=== PATIENT | female | born 1980 | race American Indian/Alaskan Native ===

== ENCOUNTER 2020-08-30 01:38 | Emergency (ER) | payer MEDICAID, OTHER ==
[2020-08-30 02:03] VITALS: BP 125/83
[2020-08-30] MEDS ORDERED: NEOMY 3.5 MG/BACIT 400 UNITS/POLY B 5000 UNITS/GM OINT PACKET TP ONE (02:27)
--- NOTE | 2020-08-30 02:45 | Emergency Department Report ---
ED Lower Extremity HPI - General Chief Complaint: Wound/Laceration Stated Complaint: KNEE PAIN Source: patient Mode of arrival: Ambulatory Limitations: No Limitations - History of Present Illness Initial Comments: Patient is a 39-year-old -[place] female with no past medical history presents to the ED with complaint of acute onset persistent right knee pain with abrasion after she tripped and fell down 3 days ago. Patient states that the abrasion and pain have worsened in the last 2 days. Patient said that she has been applying topical antibiotics and cleaning the wound with peroxide and that in the last 12 hours the pain in the abrasion wound worsened. Patient denies numbness and tingling or weakness of right leg, dizziness, syncope, chest pain, shortness of breath, seizures, fever, chills, cough or back pain. MD Complaint: knee injury (right knee abrasion) -: Sudden, days(s) (3) Injury: Knee: Right (abrasion and pain) Type of Injury: blunt, other (fall) Place: street/outdoors Severity: severe Severity scale (0 -10): 7 Improves With: nothing Worsens With: weight bearing, movement, palpation Context: fall, direct blow Associated Symptoms: able to partially bear weight - Related Data Previous Rx's Medication Instructions Recorded Last Taken Type Ibuprofen [Motrin] 600 mg PO Q8H PRN #24 tablet 08/30/20 Unknown Rx Neomycn/Bacitrc/Polymyx/Pramox 1 applic TP Q8H #1 oint...g. 08/30/20 Unknown Rx [Neosporin + Pain Relief Oint] Allergies Allergy/AdvReac Type Severity Reaction Status Date / Time No Known Allergies Allergy Unverified 05/31/13 14:17 ED Review of Systems ROS: Stated complaint: KNEE PAIN Other details as noted in HPI Constitutional: denies: chills, fever Eyes: denies: eye pain, eye discharge, vision change ENT: denies: ear pain, throat pain Respiratory: denies: cough, shortness of breath, wheezing Cardiovascular: denies: chest pain, palpitations Endocrine: no symptoms reported Gastrointestinal: denies: abdominal pain, nausea, diarrhea Genitourinary: denies: urgency, dysuria, discharge Musculoskeletal: arthralgia (Anterior right knee pain due to ulcerated abrasion wound). denies: back pain, joint swelling Skin: other (Ulcerated abrasion wound on anterior right knee). denies: rash, lesions Neurological: denies: headache, weakness, paresthesias Psychiatric: denies: anxiety, depression Hematological/Lymphatic: denies: easy bleeding, easy bruising ED Past Medical Hx - Past Medical History Previous Medical History?: No - Surgical History Past Surgical History?: Yes Additional Surgical History: Ambulatory Surgery - Social History Smoking Status: Current Every Day Smoker - Medications Home Medications: Home Medications Medication Instructions Recorded Confirmed Last Taken Type Ibuprofen [Motrin] 600 mg PO Q8H PRN #24 tablet 08/30/20 Unknown Rx Neomycn/Bacitrc/Polymyx/Pramox 1 applic TP Q8H #1 oint...g. 08/30/20 Unknown Rx [Neosporin + Pain Relief Oint] ED Physical Exam - General Limitations: No Limitations General appearance: alert, in no apparent distress - Head Head exam: Present: atraumatic, normocephalic, normal inspection - Eye Eye exam: Present: normal appearance, PERRL, EOMI - ENT ENT exam: Present: normal exam, normal orophraynx, mucous membranes moist, TM's normal bilaterally, normal external ear exam - Neck Neck exam: Present: normal inspection, full ROM - Respiratory Respiratory exam: Present: normal lung sounds bilaterally. Absent: respiratory distress, wheezes, rales, rhonchi, chest wall tenderness, accessory muscle use, decreased breath sounds - Cardiovascular Cardiovascular Exam: Present: regular rate, normal rhythm, normal heart sounds. Absent: systolic murmur, diastolic murmur, rubs, gallop - GI/Abdominal GI/Abdominal exam: Present: soft, normal bowel sounds. Absent: distended, tenderness, guarding, rigid, hyperactive bowel sounds, hypoactive bowel sounds, mass - Extremities Exam Extremities exam: Present: normal inspection, full ROM, tenderness (Palpable anterior right knee tenderness due to ulcerated abrasion wound from a recent fall), normal capillary refill - Back Exam Back exam: Present: normal inspection, full ROM. Absent: tenderness, CVA tenderness (R), CVA tenderness (L), muscle spasm, paraspinal tenderness - Neurological Exam Neurological exam: Present: alert, oriented X3, CN II-XII intact, normal gait, reflexes normal - Psychiatric Psychiatric exam: Present: normal affect, normal mood - Skin Skin exam: Present: warm, dry, intact, normal color, abrasion (Ulcerated abrasion wound with localized tenderness on anterior right knee). Absent: rash ED Course Vital Signs 08/30/20 01:59 Temperature 98.1 F Pulse Rate 85 Respiratory 18 Rate Blood Pressure 125/83 O2 Sat by Pulse 96 Oximetry ED Lower Extremity MDM - Medical Decision Making This is a 39-year-old -[place] female with no past medical history presents to the ED with complaint of acute onset persistent right knee pain with abrasion after she tripped and fell down 3 days ago. Patient states that the abrasion and pain have worsened in the last 2 days. Patient said that she has been applying topical antibiotics and cleaning the wound with peroxide and that in the last 12 hours the pain in the abrasion wound worsened. In the ED, patient is alert and oriented x3 and is not in distress. The right knee abrasion wound was cleaned and dressed appropriately after application of a topical Neosporin. Patient is fully ambulatory in the ED therefore and no need of an x-ray as a fractured bone is not suspected. Patient was then discharged home on pain medications and advised follow-up with her primary care physician in 5 to 7 days for reevaluation or return to the ED immediately if symptoms get worse. - Differential Diagnosis abrasion; contusion; muscle strain; knee sprain Critical care attestation.: If time is entered above; I have spent that time in minutes in the direct care of this critically ill patient, excluding procedure time. ED Disposition Clinical Impression: Abrasion, right knee, initial encounter Contusion of right knee Qualifiers: Encounter type: initial encounter Qualified Code(s): S80.01XA - Contusion of right knee, initial encounter Disposition: DC-01 TO HOME OR SELFCARE Is pt being admited?: No Does the pt Need Aspirin: No Condition: Stable Instructions: Contusion, [id number], Abrasion, [id number] Additional Instructions: Take medication with food, drink plenty of fluids and follow-up with your primary care physician in 7 to 10 days for reevaluation. Return to the ED immediately if symptoms get worse. Prescriptions: Ibuprofen [Motrin] 600 mg PO Q8H PRN #24 tablet PRN Reason: Pain Neomycn/Bacitrc/Polymyx/Pramox [Neosporin + Pain Relief Oint] 1 applic TP Q8H #1 oint...g. Referrals: ROBBI ABERNATHY [Other] - 3-5 Days Time of Disposition: 02:45 Print Language: [place]
== END 2020-08-30 03:04 | disposition home or self-care (01) ==
LOC: ED 01:38
DX: S80.01XA Contusion of right knee, initial encounter (principal); S80.211A Abrasion, right knee, initial encounter; F17.200 Nicotine dependence, unspecified, uncomplicated; Z98.890 Other specified postprocedural states; Z79.1 Long term (current) use of non-steroidal anti-inflammatories (NSAID); Z79.899 Other long term (current) drug therapy; W01.0XXA Fall on same level from slipping, tripping and stumbling without subsequent striking against object, initial encounter; Y93.89 Activity, other specified; Y92.89 Other specified places as the place of occurrence of the external cause; Y99.8 Other external cause status
CPT/HCPCS: 99283; A6250

== ENCOUNTER 2021-04-24 06:01 | Outpatient (CLI) | payer OTHER ==
[2021-04-24 06:53] VITALS: BP 101/65
[2021-04-24] MEDS ORDERED: LACTATED RINGERS 1,000 ML IV ONE (07:04)
[2021-04-24 07:28] LABS: Bacteria,Urine 1+ /HPF (Negative); Bilirubin,Urine NEG (Negative); Blood,Urine NEG (Negative); Color,Urine Yellow (Yellow); Hyaline Casts,Urine 1 /LPF; Mucus,Urine FEW /HPF; Protein,Urine <15 mg/dL mg/dL (Negative); RBC,Urine < 1.0 /HPF (0.0-6.0)
[2021-04-24 07:37] LABS: Amphetamine Screen,Urine PRESUMPTIVE NEGATIVE; Benzodiazepines Screen,Urine PRESUMPTIVE NEGATIVE; Cannabinoid Screen,Urine PRESUMPTIVE POSITIVE; Cocaine Screen,Urine PRESUMPTIVE NEGATIVE; Methadone Screen,Urine PRESUMPTIVE NEGATIVE; Opiate Screen,Urine PRESUMPTIVE NEGATIVE
--- NOTE | 2021-04-24 10:49 | Ultrasound Report ---
ULTRASOUND OBSTETRIC LIMITED ULTRASOUND BIOPHYSICAL PROFILE INDICATION / CLINICAL INFORMATION: BPP/SELENE. COMPARISON: None available. FINDINGS: BREATHING MOVEMENT = 2 GROSS BODY MOVEMENT = 2 TONE = 2 QUALITATIVE AMNIOTIC FLUID VOLUME = 2 TOTAL BIOPHYSICAL SCORE = 8/8 AMNIOTIC FLUID INDEX (cm) = 18.2 PRESENTATION: Cephalic. HEART RATE (beats per minute): 132 ADDITIONAL FINDINGS: None. IMPRESSION: 1. Biophysical Score = 8/8 Signer Name: Pavel Garsia MD Signed: 04/24/2021 10:45 AM Workstation Name: [id number]
== END 2021-04-24 10:12 | disposition home or self-care (01) ==
LOC: TRG 06:01 → APU 06:02 → TRG 10:12
PROVIDERS: ATTEND Obstetrics & Gynecology
DX: O62.9 Abnormality of forces of labor, unspecified (principal); O42.913 Preterm premature rupture of membranes, unspecified as to length of time between rupture and onset of labor, third trimester; O09.523 Supervision of elderly multigravida, third trimester; Z3A.34 34 weeks gestation of pregnancy; Z79.899 Other long term (current) drug therapy
CPT/HCPCS: 36415; 59025; 76815; 76819; 80307; 81001; 84112; 96360; J7120